=== PATIENT | female | born 1980 | race Caucasian/White ===

== ENCOUNTER 2016-05-19 17:37 | Emergency (ER) | payer BC ==
--- NOTE | 2016-05-19 18:13 | EDM.PDOC ---
ED HPI GENERAL MEDICAL PROBLEM - General Chief Complaint: Abdominal Pain Stated Complaint: ABDOMINAL PAIN Time Seen by Provider: 05/19/16 18:05 - History of Present Illness INITIAL COMMENTS - FREE TEXT/NARRATIVE: HISTORY AND PHYSICAL: History of present illness: Patient is a 35 year white female with no significant past medical history presents with concern of right rib/chest pain she states she had a fall several weeks prior in which she struck her right ribs anteriorly on the stairs she denies abdominal pain nausea vomiting shortness of breath or other concern Review of systems: As per history of present illness and below otherwise all systems reviewed and negative. Past medical history: As per history of present illness and as reviewed below otherwise noncontributory. Surgical history: As per history of present illness and as reviewed below otherwise noncontributory. Social history: No reported history of drug or alcohol abuse. Family history: As per history of present illness and as reviewed below otherwise noncontributory. Physical exam: HEENT: Atraumatic, normocephalic, pupils reactive, negative for conjunctival pallor or scleral icterus, mucous membranes moist, throat clear, neck supple, nontender, trachea midline. Lungs: Clear to auscultation, breath sounds equal bilaterally, chest mild tenderness in the anterior axillary region of her right ribs at the level of eighth and ninth no crepitation noted Heart: S1S2, regular, negative for clicks, rubs, or JVD. Abdomen: Soft, nondistended, nontender. Negative for masses or hepatosplenomegaly. Negative for costovertebral tenderness. Pelvis: Stable nontender. Genitourinary: Deferred. Rectal: Deferred. Extremities: Atraumatic, negative for cords or calf pain. Neurovascular unremarkable. Neuro: Awake, alert, oriented. Cranial nerves II through XII unremarkable. Cerebellum unremarkable. Motor and sensory unremarkable throughout. Exam nonfocal. Diagnostics: Patient defers any diagnostics other than chest x-ray right rib film UA [employer]: None Impression: #1 right rib pain #2 history of rib injury Definitive disposition and diagnosis as appropriate pending reevaluation and review of above. Abdominal Pain Score (Numeric/FACES): 7 - Related Data Allergies Allergy/AdvReac Type Severity Reaction Status Date / Time No Known Allergies Allergy Verified 05/19/16 17:55 Home Meds: Home Meds . [No Known Home Meds] 02/13/14 [History] Social & Family History - Tobacco Use Smoking Status *Q: Current Every Day Smoker Years of Tobacco use: 15 Used Tobacco, but Quit: No Second Hand Smoke Exposure: Yes - Alcohol Use Days Per Week of Alcohol Use: 3 Number of Drinks Per Day: 1 Total Drinks Per Week: 3 - Recreational Drug Use Recreational Drug Use: No ED ROS GENERAL - Review of Systems Review Of Systems: ROS reveals no pertinent complaints other than HPI. ED EXAM, GENERAL - Physical Exam Exam: See Below (See dictation) Course - Vital Signs Last Recorded V/S: Last Vital Signs Temp 36.6 C 05/19/16 17:55 Pulse 78 05/19/16 17:55 Resp 18 05/19/16 17:55 BP 123/68 05/19/16 17:55 Pulse Ox 100 05/19/16 17:55 - Orders/Labs/Meds Orders: Active Orders 24 hr Category Date Time Status Chest 2V [CR] Stat Exams 05/19/16 18:09 Ordered Ribs 2V wo Chest Rt [CR] Stat Exams 05/19/16 18:09 Ordered HCG QUALITATIVE,URINE [URCHEM] Stat Lab 05/19/16 18:09 Uncollected UA W/MICROSCOPIC [URIN] Stat Lab 05/19/16 18:09 Uncollected Departure - Departure Time of Disposition: 18:12 Disposition: Home, Self-Care 01 Condition: good Clinical Impression: Rib pain on right side Forms: ED Department Discharge Additional Instructions: The following information is given to patients seen in the emergency department who are being discharged to home. This information is to outline your options for follow-up care. We provide all patients seen in our emergency department with a follow-up referral. The need for follow-up, as well as the timing and circumstances, are variable depending upon the specifics of your emergency department visit. If you don't have a primary care physician on staff, we will provide you with a referral. We always advise you to contact your personal physician following an emergency department visit to inform them of the circumstance of the visit and for follow-up with them and/or the need for any referrals to a consulting specialist. The emergency department will also refer you to a specialist when appropriate. This referral assures that you have the opportunity for followup care with a specialist. All of these measure are taken in an effort to provide you with optimal care, which includes your followup. Under all circumstances we always encourage you to contact your private physician who remains a resource for coordinating your care. When calling for followup care, please make the office aware that this follow-up is from your recent emergency room visit. If for any reason you are refused follow-up, please contact the [facility] emergency department at and asked to speak to the emergency department charge nurse. Janice Tylenol as directed follow up primary medical doctor one to 2 days return as needed as discussed - My Orders Last 24 Hours: My Active Orders 05/19/16 18:09 Chest 2V [CR] Stat Ribs 2V wo Chest Rt [CR] Stat HCG QUALITATIVE,URINE [URCHEM] Stat UA W/MICROSCOPIC [URIN] Stat - Assessment/Plan Last 24 Hours: My Active Orders 05/19/16 18:09 Chest 2V [CR] Stat Ribs 2V wo Chest Rt [CR] Stat HCG QUALITATIVE,URINE [URCHEM] Stat UA W/MICROSCOPIC [URIN] Stat
[2016-05-19 21:23] VITALS: BP 120/80
--- NOTE | 2016-05-20 14:05 | CR ---
EXAM DATE: 05/19/16 PATIENT'S AGE: 35 Patient: JUNE LUKE Facility: [place], [place] Site . Site : 1980 Study: XRay Chest RIBS [id number]/2/2017 7:11:48 PM Ordering Physician: Micah Dupree Final Report: CHEST AND RIGHT RIBS INDICATION: Fall 2 weeks ago. Right rib pain. COMPARISON: None. FINDINGS/IMPRESSION: Chest, 2 views and right ribs, 4 views. No rib fracture identified. Lungs are clear aside from scattered calcified granulomas. No pneumothorax or pleural fluid collection. Unremarkable cardiomediastinal contour. Dictated by Erick Desouza MD @ 05/19/2016 7:25:19 PM Dictated by: Erick Desouza MD @ 05/19/2016 19:25:43 (Electronic Signature) Report Signed by Proxy and Original Signed Document filed in the Medical Record. [email or web address]
--- NOTE | 2016-05-20 14:05 | CR ---
EXAM DATE: 05/19/16 PATIENT'S AGE: 35 Patient: JUNE LUKE Facility: [place], [place] Site . Site : 1980 Study: XRay Chest [id number]/2/2017 7:11:19 PM Ordering Physician: Micah Dupree Final Report: CHEST AND RIGHT RIBS INDICATION: Fall 2 weeks ago. Right rib pain. Shortness of breath. COMPARISON: None. FINDINGS/IMPRESSION: Chest, 2 views and right ribs, 4 views. No rib fracture identified. Lungs are clear aside from scattered calcified granulomas. No pneumothorax or pleural fluid collection. Unremarkable cardiomediastinal contour. Dictated by Erick Desouza MD @ 05/19/2016 7:25:19 PM Dictated by: Erick Desouza MD @ 05/19/2016 19:26:15 (Electronic Signature) Report Signed by Proxy and Original Signed Document filed in the Medical Record. MTDD
== END 2016-05-19 19:46 | disposition home or self-care (01) ==
LOC: MW.ED 17:37
DX: R07.89 Other chest pain (principal); F17.200 Nicotine dependence, unspecified, uncomplicated
CPT/HCPCS: 71020; 71020-26; 71100-26-RT; 71100-RT; 81001; 81025; 99282; 99284

== ENCOUNTER 2020-11-19 06:31 | Emergency (ER) | payer OTHER ==
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
[2020-11-19] MEDS ORDERED: Ibuprofen 600 MG Tab PO ONE (07:01)
[2020-11-19] MEDS ORDERED: Lidocaine 5% 700 MG Patch TRDERM ONE (07:01)
[2020-11-19] MEDS ORDERED: Acetaminophen/oxyCODONE 325-5 MG Tab PO ONE (07:01)
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
[2020-11-19 08:38] VITALS: BP 102/56; PULSE 84
== END 2020-11-19 08:31 | disposition home or self-care (01) ==
LOC: MW.ED 06:31
DX: S20.211A Contusion of right front wall of thorax, initial encounter (principal); V86.99XA Unspecified occupant of other special all-terrain or other off-road motor vehicle injured in nontraffic accident, initial encounter; Y92.410 Unspecified street and highway as the place of occurrence of the external cause
CPT/HCPCS: 71101; 99284; A9270